=== PATIENT | male | born 1960 | race Caucasian/White ===

== ENCOUNTER 2022-09-14 19:55 | Emergency (ER) | payer OTHER, SELFPAY ==
[2022-09-14] VITALS (20 sets, daily range): BP systolic 88–111; BP diastolic 51–73; PULSE 71–83; RESP 14–24; O2SAT 95–99; BMI 21.9
--- NOTE | 2022-09-14 19:57 | DI.RAD.S_ITS ---
PROCEDURE: XR CHEST 1V INDICATIONS: chest pain TECHNIQUE: One view of the chest was acquired. COMPARISON: None. FINDINGS: Surgical changes and devices: None. Lungs and pleura: Lungs are clear. No pleural effusions or pneumothorax. Mediastinum: Mediastinal contours appear normal. Heart size is normal. Bones and chest wall: No suspicious bony lesions. Overlying soft tissues appear unremarkable. IMPRESSION: 1. No acute cardiopulmonary disease. Dictated by: Farhat Vasques M.D. on 09/14/2022 at 20:34 Approved by: Farhat Vasques M.D. on 09/14/2022 at 20:34
[2022-09-14 20:09] LABS: Add Manual Diff / Slide Review NO; Basophils Absolute Auto 100 /uL (0-100); Basophils Percent Auto 0.9 % (0-2); Eosinophils Absolute Auto 500 /uL (0-450); Eosinophils Percent Auto 4.5 % (2-4); Hematocrit 42.3 % (41-53); Hemoglobin 14.3 g/dL (13.5-17.5); Lymphocytes Absolute Auto 4800 /uL (1100-4500); Lymphocytes Percent Auto 45.7 % (25-40); Mean Corpuscular HGB Conc 33.9 % (30-36); Mean Corpuscular Hemoglobin 30.9 PG (26-34); Mean Corpuscular Volume 91.1 fL (80-100); Monocytes Absolute Auto 900 /uL (0-900); Monocytes Percent Auto 8.7 % (3-14); Neutrophils Absolute Auto 4300 /uL (1500-7000); Neutrophils Percent Auto 40.2 % (50-75); Platelet Count 335 X10^3/uL (150-400); Red Blood Cell Count 4.64 X10^6/uL (4.5-5.9); White Blood Cell Count 10.6 X10^3/uL (4.5-11.0)
[2022-09-14] MEDS: SODIUM CHLORIDE 0.9% 1,000 ML 1000 ML IV ×2 (20:11→21:23)
[2022-09-14 20:21] LABS: Prothrombin Time 11.7 SECONDS (10.1-12.7)
[2022-09-14 20:23] LABS: PTT Partial Thromboplastin Tim 26 SECONDS (26-36)
--- NOTE | 2022-09-14 20:23 | ED.GENADULT ---
HPI - General Adult General Chief complaint: Syncope Stated complaint: syncopal Time Seen by Provider: 09/14/22 20:22 Source: patient and EMS Mode of arrival: EMS History of Present Illness HPI narrative: 62-year-old gentleman with a known history of lifelong hypotension and occasional syncopal episodes (apparently this happens with his entire family), is camping at [facility] was sitting on a bench and had a syncopal episode that did not seem to be provoked by anything. He was not complaining of chest pain, palpitations or dyspnea. Complains of no pain. He had smoked a small amount of marijuana prior but does this occasionally so it was not a new experienced. Prior to the episode he has no complaints of weakness, exertional dyspnea. He and his note that they have been enjoying their camping trip and were riding their electric bike around the park earlier without any difficulties. Related Data Home Medications Medication Instructions Recorded Confirmed No Known Home Medications 09/14/22 09/14/22 Allergies Allergy/AdvReac Type Severity Reaction Status Date / Time No Known Drug Allergies Allergy Verified 09/14/22 20:27 Review of Systems Review of Systems Narrative: Pertinent positive and negative findings as per HPI Patient History Medical History (Updated 09/14/22 @ 23:45 by Laura Wood MD) Low blood pressure Patient denies significant medical history Social History Smoking Status: Never smoker Smoking Status: Never smoker alcohol intake frequency: holidays/special occasions only Substance Use Type: marijuana Exam Initial Vital Signs Initial Vital Signs: Vital Signs Pulse Rate 79 09/14/22 19:59 Pulse Oximetry 97 09/14/22 19:59 General: Healthy appearing, in no acute distress. Able to give a complete and coherent history. Well-nourished well-developed HEENT: Moist mucous membranes, normal sclera with reactive pupils, Neck: No JVD, supple Respiratory: Lungs are clear to auscultation, no wheezing no rales no rhonchi. Full and symmetrical air movement Cardiac: Regular rate and rhythm no murmurs no bruits Abdomen: Soft, nontender, good bowel tones, no flank pain Skin: Warm and dry, no rashes Neurologic: Grossly neurologically intact with no obvious asymmetries or abnormalities Extremities: No trauma, well perfused, no lower extremity edema Psych: Cooperative, appropriate insight and affect Course Orders Ordered: ED Orders 09/14/22 19:57 XR chest 1V Stat EKG-12 Lead Stat 09/14/22 19:58 Complete Blood Count AUTO DIFF Stat Comprehensive Metabolic Panel Stat Lipase Stat Magnesium Stat PTT Partial Thromboplastin Pavan Stat Prothrombin Time INR Stat Troponin & CK Cardiac Panel Stat Discontinued Medications Sodium Chloride (Normal Saline 0.9%) 1,000 mls @ 1,000 mls/hr IV BOLUS ONE Stop: 09/14/22 20:56 Last Infusion: 09/14/22 21:12 Dose: 0 mls/hr Documented By: Admin: 09/14/22 20:11 Dose: 1,000 mls/hr Documented By: ROB Sodium Chloride (Normal Saline 0.9%) 1,000 mls @ 1,000 mls/hr IV BOLUS ONE Stop: 09/14/22 22:19 Last Infusion: 09/14/22 21:55 Dose: 0 mls/hr Documented By: Admin: 09/14/22 21:23 Dose: 1,000 mls/hr Documented By: ROB Vital Signs Vital signs: Vital Signs - 8 hr 09/14/22 20:04 09/14/22 19:59 09/14/22 20:00 Pulse Rate 76 79 Respiratory Rate 18 Blood Pressure 107/61 91/60 Pulse Oximetry 97 97 Oxygen Delivery Method Room Air 09/14/22 20:00 09/14/22 20:15 09/14/22 20:30 Pulse Rate 78 71 Respiratory Rate 20 18 Blood Pressure 88/51 L Pulse Oximetry 97 97 Oxygen Delivery Method 09/14/22 20:30 09/14/22 20:36 09/14/22 20:36 Pulse Rate 78 74 Respiratory Rate 22 22 Blood Pressure 105/68 Pulse Oximetry 97 98 Oxygen Delivery Method Room Air 09/14/22 20:45 09/14/22 20:55 09/14/22 20:55 Pulse Rate 75 77 Respiratory Rate 18 24 Blood Pressure 98/69 Pulse Oximetry 99 98 Oxygen Delivery Method 09/14/22 21:00 09/14/22 21:00 Pulse Rate 77 Respiratory Rate 19 Blood Pressure 92/70 Pulse Oximetry 98 Oxygen Delivery Method Medical Decision Making Lab Data 09/14/22 19:58 09/14/22 19:58 Labs: Lab Results 09/14/22 09/14/22 09/14/22 Range/Units 19:58 19:58 19:58 WBC 10.6 (4.5-11.0) X10^3/uL RBC 4.64 (4.5-5.9) X10^6/uL Hgb 14.3 (13.5-17.5) g/dL Hct 42.3 (41-53) % MCV 91.1 (80-100) fL MCH 30.9 (26-34) PG MCHC 33.9 (30-36) % RDW 14.0 (11.6-14.8) % Plt Count 335 (150-400) X10^3/uL Neut % (Auto) 40.2 L (50-75) % Lymph % (Auto) 45.7 H (25-40) % Taney % (Auto) 8.7 (3-14) % Eos % (Auto) 4.5 H (2-4) % Baso % (Auto) 0.9 (0-2) % Neut # (Auto) 4300 (9293-9579) /uL Lymph # (Auto) 4800 H (2388-2703) /uL Taney # (Auto) 900 (0-900) /uL Eos # (Auto) 500 H (0-450) /uL Baso # (Auto) 100 (0-100) /uL PT 11.7 (10.1-12.7) SECONDS INR 1.0 (0.9-1.3) APTT 26 (26-36) SECONDS Sodium 136 L (137-145) mmol/L Potassium 3.6 (3.4-5.1) mmol/L Chloride 102 (98-107) mmol/L Carbon Dioxide 23 (22-32) mmol/L BUN 17 (9-20) mg/dL Creatinine 1.03 (0.66-1.25) mg/dL Estimated GFR > 60 (>60) mL/min BUN/Creatinine Ratio 16.5 (6-22) Glucose 88 (80-110) mg/dL Calcium 8.6 (8.4-10.2) mg/dL Magnesium 2.1 (1.6-2.3) mg/dL Total Bilirubin 0.6 (0.2-1.3) mg/dL AST 36 (17-59) IU/L ALT 29 (<50) IU/L Alkaline Phosphatase 64 (38-126) U/L Total Creatine Kinase 247 H (55-170) U/L CK-MB (CK-2) TNP CK-MB (CK-2) Rel Index TNP Troponin I < 0.012 (0.01-0.034) ng/mL Total Protein 7.3 (6.3-8.2) g/dL Albumin 4.2 (3.5-5.0) g/dL Globulin 3.1 (1.7-4.1) g/dL Albumin/Globulin Ratio 1.4 (1.0-2.8) Lipase 165 (23-300) U/L MDM Narrative Medical decision making narrative: CC: Syncopal episode, acute problem uncertain prognosis Complicating co-morbidities: History of low blood pressure with occasional syncopal episodes over the course of his lifetime Data collected from: patient, Differential considered: Hypotension, sepsis, stroke, acute coronary syndrome, adverse reaction to recreational marijuana use Exam documented above, pertinent findings include: Exam is entirely benign Lab Test results independently reviewed as above. Pertinent findings: CBC is unremarkable. No leukocytosis and no acute anemia Chemistries are reassuring with normal creatinine. Total CK is slightly elevated which may be related to his increased October the over the last day or 2 with camping Troponin is undetectable Independently reviewed EKG reveals sinus rhythm at a rate of 71 normal intervals, normal axis. No acute ischemic changes Imaging studies independently reviewed: Chest x-ray is reassuring with no acute cardiopulmonary disease Re-evaluations: Patient feels that he is back to his baseline. No significant distress. Walks to the bathroom without any difficulties Discussion: 62-year-old gentleman with syncopal episode today associated with significant hypotension responded nicely to fluids. Has been out camping may be related to extra exercise over the course of the day. There is no evidence of stroke, heart attack or acute coronary syndrome, pulmonary embolism, sepsis or other life-threatening etiology that would require hospitalization or further workup today. I suspect it is related to his baseline chronic hypotension. All of the findings reviewed with patient and his . Questions are answered and he is safe for discharge home. I have provided him with copies of blood work and x-ray to share with his primary provider once he returns home. Discharge Plan Departure Patient Disposition: Home Clinical Impression: Syncope due to orthostatic hypotension Instructions: DI for Syncope in Adults (Fainting) Activity Restrictions/Additional Instructions: Thank you for coming in today. Your workup was very reassuring. There is no evidence of heart attack, stroke, infection or alternate life-threatening explanation to explain the low blood pressure episode and syncope this afternoon. I would encourage you to make sure continuing to stay hydrated. You likely will benefit from additional salt in your diet overall and may also benefit from adding electrolytes to your water at least once a day. Please feel free to share the lab tests and x-ray results with your primary care provider when you return home. If you find that you are getting worse or develop any new symptoms, please feel free to return to the emergency department for further evaluation. Prescriptions: No Action No Known Home Medications Stand Alone Forms: Patient Portal/API
[2022-09-14 20:32] LABS: Alanine Aminotransferase 29 IU/L (<50); Albumin 4.2 g/dL (3.5-5.0); Albumin Globulin Ratio 1.4 (1.0-2.8); Alkaline Phosphatase 64 U/L (38-126); Aspartate Aminotransferase 36 IU/L (17-59); BUN Creatinine Ratio 16.5 (6-22); Bilirubin Total 0.6 mg/dL (0.2-1.3); Blood Urea Nitrogen 17 mg/dL (9-20); Calcium 8.6 mg/dL (8.4-10.2); Carbon Dioxide 23 mmol/L (22-32); Chloride 102 mmol/L (98-107); Creatine Kinase 247 U/L (55-170); Estimated Glomerular Filt Rate > 60 mL/min (>60); Globulin 3.1 g/dL (1.7-4.1); Glucose 88 mg/dL (80-110); HEMOLYSIS 45 (0-50); Lipase 165 U/L (23-300); Magnesium 2.1 mg/dL (1.6-2.3); Potassium 3.6 mmol/L (3.4-5.1); Sodium 136 mmol/L (137-145); Total Protein 7.3 g/dL (6.3-8.2)
[2022-09-14 20:43] LABS: Troponin I < 0.012 ng/mL (0.01-0.034)
== END 2022-09-14 23:52 | disposition home or self-care (01) ==
PROVIDERS: Emergency Provider Emergency Medicine
DX: I95.1 Orthostatic hypotension (principal)
CPT/HCPCS: 36415; 71045; 80053; 82550; 83690; 83735; 84484; 85025; 85610; 85730; 93005; 93010; 99284